=== PATIENT | male | born 2000 | race Two or more races ===

== ENCOUNTER 2019-12-24 00:52 | Emergency (ER) | payer SELFPAY ==
[~2019-12-24] VITALS: Ht 172.7 cm; Wt 72.6 kg
--- NOTE | 2019-12-24 01:10 | NUR ---
PT [facility] C/O OVERDOSE.PER RA,PT TOOK GABAPENTIN,XANAX, AND FENTANYL W/ UNKNOWN TIME AND DOSE. PT DROWSY, RESPIRATIONS EVEN AND UNLABORED ON RA W/ NAD NOTED. PT CONNECTED TO THE PRINCIPAL NETWORK ARCHITECT AND POX.
--- NOTE | 2019-12-24 03:05 | NUR ---
PT RESTING COMFORTABLY IN BED. VSS. NO ACUTE DISTRESS NOTED. SITTER AT BEDSIDE FOR SAFETY
[2019-12-24] MEDS ORDERED: LIDOCAINE 2% JEL UROJET 10 ML MM ONE (04:14)
--- NOTE | 2019-12-24 04:38 | NUR ---
URINE COLLECTED AND SENT TO LAB
--- NOTE | 2019-12-24 04:38 | NUR ---
BLOOD COLLECTED AND SENT TO LAB
[2019-12-24 04:47] LABS: BASOPHILS % (AUTO) 0.5 % (0.0-2.0); BILIRUBIN,URINE NEGATIVE (NEGATIVE); BLOOD, URINE NEGATIVE Ery/uL (NEGATIVE); COLOR,URINE YELLOW (YELLOW); EOSINOPHILS % (AUTO) 0.6 % (0.0-6.0); HEMATOCRIT 48 % (39-51); HEMOGLOBIN 16.2 g/dL (13.5-17.5); LEUKOCYTE ESTERASE ,URINE NEGATIVE (NEGATIVE); LYMPHOCYTES # (AUTO) 1.1 /CMM (0.8-4.8); LYMPHOCYTES % (AUTO) 20.9 % (20.0-44.0); MEAN CORPUSCULAR HGB CONC 34 g/dl (31.0-36.0); MEAN CORPUSCULAR VOLUME 89 fL (80-96); MONOCYTES # (AUTO) 0.3 /CMM (0.1-1.30); MONOCYTES % (AUTO) 5.9 % (2.0-12.0); NEUTROPHILS # (AUTO) 3.9 /CMM (1.8-8.9); NEUTROPHILS % (AUTO) 72.1 % (43.0-81.0); NITRITE, URINE NEGATIVE (NEGATIVE); PH,URINE 6.5 (5.0-8.0); PLATELET COUNT (AUTO) 182 /CMM (150-450); PROTEIN,URINE NEGATIVE (NEGATIVE); RED BLOOD CELL COUNT(AUTO) 5.38 MIL/uL (4.5-6.0); UGLUCOSE NEGATIVE (NEGATIVE); UROBILINOGEN,URINE 0.2 EU/dL (0.2); WHITE BLOOD COUNT (AUTO) 5.3 K/uL (4.3-11.0)
[2019-12-24 04:55] LABS: CALCIUM, SERUM 9.9 mg/dL (8.5-10.1); CARBON DIOXIDE 28 mmol/L (21-32); CHLORIDE 101 mmol/L (98-107); CREATININE 1.2 mg/dL (0.6-1.3); GLUCOSE 86 mg/dL (74-106); POTASSIUM 3.7 mmol/L (3.5-5.1); SODIUM SERUM 139 mmol/L (136-145); UREA NITROGEN, BLOOD 14 mg/dL (7-18)
[2019-12-24 05:01] LABS: ALANINE AMINOTRANSFERASE 21 U/L (12-78); ALBUMIN 4.6 g/dL (3.4-5.0); ALCOHOL, BLOOD < 3 mg/dL (0-0); ALKALINE PHOSPHATASE 73 U/L (46-116); ASPARTATE AMINOTRANSFERASE 17 U/L (15-37); BILIRUBIN,DIRECT 0.1 mg/dL (0.0-0.2); BILIRUBIN,TOTAL 0.4 mg/dL (0.2-1.0); TOTAL PROTEIN, SERUM 8.2 g/dL (6.4-8.2)
[2019-12-24 05:03] LABS: ACETAMINOPHEN < 10 ug/ml (10-30)
--- NOTE | 2019-12-24 12:06 | NUR ---
sleeping on monitor. arousable but doze back to sleep. stable vitals. will continue to monitor.
--- NOTE | 2019-12-24 12:32 | NUR ---
[facility] [employer] APPRENTICE AT [facility] [phone]
--- NOTE | 2019-12-24 13:50 | NUR ---
ASSESSED PT ON BED ASLEEP EASILY AROUSABLE TO TOUCH BUT STILL AAOX0, V/S STABLE, KEPT RESTED AND COMFORTABLE. WILL CONTINUE TO MONITOR.
--- NOTE | 2019-12-24 15:35 | NUR ---
SLEEPING, AROUSABLE WAS PROVIDED W. MEAL TRAY AND ORAL FLUIDS. STABLE VITALS.
--- NOTE | 2019-12-24 18:14 | NUR ---
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 PT IS MEDICALLY CLEARED FOR DISCHARGE. AMBULATORY W/ ASSISTANCE. STABLE VITALS. DISCHARGE IN STABLE CONDITION.
[2019-12-24 18:24] VITALS: BP 108/70
== END 2019-12-24 18:26 | disposition home or self-care (01) ==
LOC: ER 00:53
DX: T40.411A Poisoning by fentanyl or fentanyl analogs, accidental (unintentional), initial encounter (principal); T42.6X1A Poisoning by other antiepileptic and sedative-hypnotic drugs, accidental (unintentional), initial encounter; T42.4X1A Poisoning by benzodiazepines, accidental (unintentional), initial encounter; Y92.89 Other specified places as the place of occurrence of the external cause
CPT/HCPCS: 36415; 80048; 80076; 80299; 80307; 80320; 81001; 85025; 99285; J3490; G0480